=== PATIENT | male | born 2005 | race Two or more races ===

== ENCOUNTER 2025-05-22 01:20 | Emergency (ER) | payer BC, SELFPAY ==
[2025-05-22 01:21] VITALS: BP 172/78; PULSE 83; RESP 18; TEMP 36.5; O2SAT 96; BMI 22.7
--- NOTE | 2025-05-22 02:09 | PD.EDMALE ---
ED Male Genitalurinary RME/HPI General Chief complaint: Urogenital-Male Stated complaint: URINATING BLOOD Time Seen by Provider: 05/22/25 02:01 Arrival date/time: 05/22/25 01:20 RME / HPI RME / HPI Narrative: See MDM for Dr. Cueva's HPI Documentation. Related Data Previous Rx's ?Medication ?Instructions ?Recorded ibuprofen 600 mg tablet 600 mg PO Q8H PRN pain #20 tabs 05/09/22 cefdinir 300 mg capsule 300 mg PO BID #14 caps 05/22/25 ondansetron 4 mg disintegrating 4 mg PO TID PRN nausea and 05/22/25 tablet vomiting 30 days #10 tabs Allergies Allergy/AdvReac Type Severity Reaction Status Date / Time NKA* Allergy Uncoded 05/09/22 11:54 Review of Systems Review of Systems Systems Reviewed: All systems reviewed, normal except as documented Past Medical History Social History SMOKING STATUS: Never smoker ED Exam Narrative Physical exam: See [facility] for Dr. Cueva's Physical Exam Documentation. Course Quality Measures none Orders Category Date Time Status Bedside COVID-19 Antigen Test NOW Care 05/22/25 02:10 Active Bedside Influenza A&B Antigen Test NOW Care 05/22/25 02:10 Completed Saline [Insert IV] NOW Care 05/22/25 03:[address] abdomen pelvis wo con Stat Exams 05/22/25 02:10 Taken BMP [Basic Metabolic Panel] Stat Lab 05/22/25 02:25 Completed CBC Stat Lab 05/22/25 02:25 Completed Magnesium Stat Lab 05/22/25 02:25 Completed Strep A Rapid Stat Lab 05/22/25 02:08 Completed UA, C/S IF [Urinalysis, C/S if Indicated] Stat Lab 05/22/25 02:08 Completed Urine Culture Stat Lab 05/22/25 02:08 Received Sodium Chloride 0.9% 1000 ml [Ns] 1,000 ml Med 05/22/25 03:26 Discontinued IV 999 mls/hr cefTRIAXone/D5w 1gm IV premix [Rocephin/D5w 1gm IV Med 05/22/25 04:17 Discontinued premix] 1 g in 50 ml IV X1 Vital Signs Vital signs: Vital Signs Temperature 97.7 F 05/22/25 01:21 Pulse Rate 83 05/22/25 01:21 Respiratory Rate 18 05/22/25 01:21 Blood Pressure 172/78 H 05/22/25 01:21 Pulse Oximetry (%) 96 05/22/25 01:21 Oxygen Delivery Method Room Air 05/22/25 01:21 Urogenital - Male MDM Narrative MDM Narrative:: This section includes all my notes and documentations, including HPI, PE, and ED course. Mario Cueva MD HPI: 20 y/o male presents with blood in the urine for approximately 24 hours. Also reports cough and sore throat for several days. No abdominal pain or flank pain or back pain. No other complaints. ROS: All negative except as documented in HPI. Physical Exam: General: Alert and oriented. No acute distress when remaining still. Eyes: Conjunctivae and lids clear. ENT: No nasal congestion. Neck: Supple. Heart: RRR. Lungs: No respiratory distress. Good air movement. No rhonchi, wheezing, rales. Abdomen: Soft and nontender. Normal bowel sounds. No distension. No rebound or guarding. Back: No CVA tenderness. Skin: Warm and dry. Neuro: Alert and oriented X 3. I reviewed all diagnostic test results: My review of the Abdomen/Pelvis CT report is no acute findings. Blood tests remarkable for WBC 13.3. UA showed positive leukocyte esterase, 179 RBC, 112 WBC, and bacteria. Covid/Influenza/strep negative. At this point, diagnoses include: UTI Hematuria Treatment here included: IVF Rocephin 1 g IV Recommended outpatient care. Based on my best medical judgment, made decision no further evaluation or treatment indicated at this time. Patient understands and agrees to the discharge instructions customized and printed, see below. Discharge instructions from Dr. Cueva: 1. After evaluation, you have UTI with large amount of blood in the urine (see attached handout). There is no kidney infection or kidney stone or blood poisoning. 2. Take cefdinir to kill the germs causing the infection. 3. For good hydration and to flush the urinary tract, increase oral fluid and maintain clear urine. If dark or yellow, increase oral fluid. Zofran for nausea/vomiting. 4. See a private doctor on 05/25/2025 for recheck. Ask to check the final urine culture results from today to make sure cefdinir doesn't need to be changed due to resistance. Ask for help until blood in the urine (including microscopic blood you can't see with your eyes) is completely cleared. Otherwise, you will need referral to see urologist to make sure there is no serious underlying condition. 5. Seek immediate medical care with worsening, fever, or with any concerns. Mario Cueva MD Patient data External records reviewed:: [facility] previous records (Reviewed prior ED records from 05/09/22. Patient was seen for Acute internal derangement of knee.) Clinical information provided by:: patient Social determinants that could affect healthcare access:: none Patient has the following chronic illnesses:: None reported How is presenting disease/condition affected by chronic disease/condition?: no chronic disease Evaluation data The following diagnostics were reviewed and interpreted by me:: lab results and radiology exam(s) Lab and/or radiology exams considered but not ordered:: None Interpretation Summary: I reviewed all diagnostic test results: My review of the Abdomen/Pelvis CT report is no acute findings. Blood tests remarkable for WBC 13.3. UA showed positive leukocyte esterase, 179 RBC, 112 WBC, and bacteria. Covid/Influenza/strep negative. Medications / Prescriptions Medications or Prescriptions considered but not ordered:: None Medication administrations:: Medication Administration History Discontinued Medications Sodium Chloride (Ns) 1,000 mls @ 999 mls/hr IV .Q1H1M ONE Stop: 05/22/25 04:26 Last Admin: 05/22/25 04:25 Dose: 999 mls/hr Documented By: CCT Ceftriaxone Sodium/Dextrose (Rocephin/D5w 1gm Iv Premix) 1 g in 50 mls @ 100 mls/hr IV X1 ONE Stop: 05/22/25 04:46 Last Admin: 05/22/25 04:33 Dose: 100 mls/hr Documented By: CCT IVF Rocephin 1 g IV Consultations Consultation(s) initiated? (list below): No Diagnosis Urogenital Male Differential Diagnosis: urinary tract infection, urethritis, epididymitis, prostatitis and acute retention of urine Most likely diagnosis given after review of the tests above:: UTI Hematuria Admission Indicated Admission indicated?: not indicated Explain why admission is indicated or not indicated:: With significant improvement and no condition needing emergent intervention, there was no indication for admission. Admission Request Was there a request for admission?: No Disposition Plan Disposition Plan: Discharge Discharge Attestation Discharge Attestation: The patient and all family members were given an opportunity to ask questions and understood the discharge instructions. Discharge instructions specifically effects, indications for sooner follow up or return to the emergency department, and the expected course of current diagnosis. Patient condition: Stable Discharge Plan Plan Patient Disposition: HOME (Self Care) Prescriptions/Referrals Prescriptions/Med Rec: New cefdinir 300 mg capsule 300 mg PO BID Qty: 14 0RF ondansetron 4 mg tablet,disintegrating 4 mg PO TID PRN (Reason: nausea and vomiting) 30 Days Qty: 10 0RF No Action ibuprofen 600 mg tablet 600 mg PO Q8H PRN (Reason: pain) Qty: 20 0RF Referrals: Shant Welch MD [Primary Care Provider, Family Practice] - In 1 week Problem List Clinical Impression: Urinary tract infection, Hematuria Patient/Caregiver Discharge Instructions Discharge Activity: activity as tolerated Education Materials: ED Hematuria, ED Urinary Tract Infections in Men Additional Instructions: Discharge instructions from Dr. Cueva: 1. After evaluation, you have UTI with large amount of blood in the urine (see attached handout). There is no kidney infection or kidney stone or blood poisoning. 2. Take cefdinir to kill the germs causing the infection. 3. For good hydration and to flush the urinary tract, increase oral fluid and maintain clear urine. If dark or yellow, increase oral fluid. Zofran for nausea/vomiting. 4. See a private doctor on 05/25/2025 for recheck. Ask to check the final urine culture results from today to make sure cefdinir doesn't need to be changed due to resistance. Ask for help until blood in the urine (including microscopic blood you can't see with your eyes) is completely cleared. Otherwise, you will need referral to see urologist to make sure there is no serious underlying condition. 5. Seek immediate medical care with worsening, fever, or with any concerns. Print Language: Russian Stand Alone Forms: Lanny Award Info., Patient Portal Info Letter
--- NOTE | 2025-05-22 02:10 | XR_ITS ---
Examination: CT abdomen and pelvis without contrast. Coronal 3-D reconstructions. Sagittal 2-D reconstructions. Date and time of exam: May 22, 2025, 0235 hours INDICATIONS: Urinating blood 1 week CTDI: vol (mGy): 6.15 DLP: (mGycm): 331 Technique: Axial images of the abdomen have been obtained, 3 mm slice thickness Intravenous contrast material has not been administered. Low dose protocols were performed. One or more of the following dose reduction techniques were used; automated exposure control, adjustment of the mA and/or KV according to patient size, use of iterative reconstruction technique. Findings: No liver or splenic lesion No gallstones No pancreatic or adrenal mass No renal or ureteral calculi, no hydronephrosis Aorta normal size No pericecal inflammatory change No bladder mass or bladder calculi No prostatomegaly IMPRESSION: No acute process in the abdomen or pelvis
[2025-05-22 02:21] LABS: Collection Type, Urine Clean Catch; Squamous Epithelial Cell,Urine 0 /hpf (0-5)
[2025-05-22 02:32] LABS: Basophils # (Auto) 0.1 Thou/mm3 (0.0-0.2); Basophils % (Auto) 1 % (0-2.5); Eosinophils # (Auto) 0.1 Thou/mm3 (0.0-0.5); Eosinophils % (Auto) 1 % (0-10); Hematocrit 43.0 % (41.0-53.0); Hemoglobin 14.6 g/dL (13.5-16.0); Immature Granulocytes Auto 0.06 Thou/mm3 (0.00-0.00); Lymphocytes # (Auto) 2.2 Thou/mm3 (1.0-4.8); Lymphocytes % (Auto) 17 % (10-50); Mean Corpuscular HGB Conc 34.0 g/dl (31.0-37.0); Mean Corpuscular Hemoglobin 30.4 pg (25.0-35.0); Mean Corpuscular Volume 90 fL (80-100); Monocytes # (Auto) 1.2 Thou/mm3 (0.0-0.8); Monocytes % (Auto) 9 % (0-12); Neutrophils # (Auto) 9.7 Thou/mm3 (1.8-7.7); Neutrophils % (Auto) 72 % (37-80); Nucleated Red Blood Cell # 0.00 Thou/mm3 (0.00-0.00); Nucleated Red Blood Cell % 0 /100 WBC (0); Platelet Count 336 Thou/mm3 (140-440); RDW Standard Deviation 41.9 fL (35.1-43.9); Red Blood Count 4.80 Miln/mm3 (4.50-5.90); White Blood Count 13.3 Thou/mm3 (4.5-11.0)
[2025-05-22 02:33] LABS: Bacteria,Urine Rare; Bilirubin,Urine Negative (Negative); Blood,Urine 3+ (Negative); Clarity,Urine Turbid (Clear/Hazy); Color,Urine Lt-Brown (Lt Yel-Yel); Glucose, Urine Negative (Negative); Ketones,Urine Negative (Negative); Leukocyte Esterase,Urine Positive (Negative); Nitrite,Urine Negative (Negative); PH,Urine 6.5 (5.0-7.0); Protein,Urine Trace (Neg - Trace); RBC,Urine 979 /hpf (0-3); Specific Gravity,Urine 1.015 (1.001-1.035); Urobilinogen,Urine Negative mg/dL (0.0-1.0); WBC,Urine 112 /hpf (0-5)
[2025-05-22 02:34] LABS: Culture Indicated,Urine Yes
[2025-05-22 02:56] LABS: Anion Gap 9 (7-16); BUN/Creatinine Ratio 11 Ratio (12-20); Blood Urea Nitrogen 11 mg/dL (9-23); Calcium 9.3 mg/dL (8.3-10.6); Carbon Dioxide 29.2 mMol/L (20.0-31.0); Chloride 103 mMol/L (98-107); Creatinine (Component) 1.0 mg/dL (0.6-1.3); Estimated Creatinine Clearance 123.2 mL/min (>60); Glucose 90 mg/dL (74-106); Magnesium 1.9 mg/dL (1.6-2.6); Osmolality,Calculated 280 (275-295); Potassium 3.9 mMol/L (3.4-5.1); Sodium 141 mMol/L (136-145); eGFR > 60 See Note
[2025-05-22 03:41] LABS: Strep A Rapid Negative (Negative)
--- NOTE | 2025-05-22 04:00 | PRELIM_ITS ---
CT scan of the abdomen and pelvis without intravenous contrast (axial sections with sagittal, coronal and 3D reformats) May 22, 2025 at 0234 hours. Clinical History: Hematuria. Comparison: No prior study is available for comparison. Findings: No evidence of renal/ureteric calculus or hydroureteronephrosis. The liver, gallbladder, pancreas, spleen, kidneys and adrenals are unremarkable on this noncontrast study. No evidence of bowel obstruction. The appendix is within normal limits (images [id number]). There is no mesenteric or retroperitoneal adenopathy. The urinary bladder is partially distended and shows mild wall thickening; possibility of cystitis cannot be excluded. There is no free fluid or free air. The osseous structures are unremarkable. The lung bases are clear. Please note that evaluation of soft tissue/vascular structures and bowel loops is limited due to absence of IV and oral contrast. Impression: 1. No evidence of renal/ureteric calculus or hydroureteronephrosis. 2. Partially distended urinary bladder with mild wall thickening; possibility of cystitis cannot be excluded. 3. Other findings as described above. Suggest clinical correlation and follow up accordingly. Report Electronically Signed By: Pedro Pablo Keenan 05/22/2025 4:00:31 AM [EST]
[2025-05-22 04:05] VITALS: BP 143/80; PULSE 70; RESP 17; TEMP 36.9; O2SAT 98
[2025-05-22] MEDS: SODIUM CHLORIDE 0.9% 1000 ML 1,000 ML 999 ML IV (04:25)
[2025-05-22] MEDS: cefTRIAXone/D5w 1gm IV premix 1 G/50 ML BAG IV (04:33)
[2025-05-22 05:30] VITALS: BP 126/76; PULSE 91; RESP 18; TEMP 36.6; O2SAT 99
== END 2025-05-22 05:30 | disposition home or self-care (01) ==
PROVIDERS: Emergency Provider Emergency Medicine; PCP Family Medicine
DX: N39.0 Urinary tract infection, site not specified (principal); R31.9 Hematuria, unspecified; R05.9 Cough, unspecified
CPT/HCPCS: 36415; 74176; 80048; 81001; 83735; 85025; 87086; 87400; 87651; 87811; 96365; 99284; J0696; J7030